=== PATIENT | female | born 1970 | race Caucasian/White ===

== ENCOUNTER 2018-06-22 17:07 | Emergency (ER) | payer SELFPAY | END 2018-06-22 17:08 | disposition left against medical advice (07) | LOC: ED 17:07 | DX: R07.9 Chest pain, unspecified (principal); Z53.21 Procedure and treatment not carried out due to patient leaving prior to being seen by health care provider ==

== ENCOUNTER 2018-06-24 11:20 | Emergency (ER) | payer SELFPAY ==
[2018-06-24 11:35] VITALS: BP 152/99
--- NOTE | 2018-06-24 12:11 | Emergency Department Report ---
ED General Adult HPI - General Chief complaint: Chest Pain Stated complaint: CHEST PAINS Time Seen by Provider: 06/24/18 11:56 Source: patient Mode of arrival: Ambulatory Limitations: No Limitations - History of Present Illness Initial comments: Patient is 47 years old female with history of hypertension on Norvasc 10 mg daily. Patient presented to the ER complaining of left sided chest pain, sharp in nature comes and goes. Patient denied any shortness of breath, cough or fever. Patient stated that she had been going through a lot of stress since she have to follow up on an abnormal mammogram. Patient adamantly refused any blood or or x-rays and she stated that this is an of course, a lot of money as she doesn't have money for that and she just want our [facility] refill. I explained to the patient that there is a great possibility that she might have a heart attack, clots in the lung, pneumonia or other serious disease but she still does not want any further workup. - Related Data Previous Rx's Medication Instructions Recorded Last Taken Type Amlodipine Besylate [Norvasc] 10 mg PO DAILY #30 tablet 06/24/18 Unknown Rx Allergies Allergy/AdvReac Type Severity Reaction Status Date / Time shellfish derived Allergy Unknown Verified 06/24/18 11:36 ED Review of Systems ROS: Stated complaint: CHEST PAINS Other details as noted in HPI Comment: All other systems reviewed and negative Constitutional: denies: chills, fever Cardiovascular: chest pain. denies: palpitations, dyspnea on exertion Gastrointestinal: denies: abdominal pain, nausea, vomiting Skin: denies: rash, lesions ED Past Medical Hx - Past Medical History Hx Hypertension: Yes Additional medical history: heart murmur, breast mass-dx unconfirmed - Surgical History Past Surgical History?: No - Social History Smoking Status: Current Every Day Smoker Substance Use Type: Alcohol - Medications Home Medications: Home Medications Medication Instructions Recorded Confirmed Last Taken Type Amlodipine Besylate [Norvasc] 10 mg PO DAILY #30 tablet 06/24/18 Unknown Rx ED Physical Exam - General Limitations: No Limitations General appearance: alert, in no apparent distress, anxious - Head Head exam: Present: atraumatic, normocephalic, normal inspection - Eye Eye exam: Present: normal appearance - ENT ENT exam: Present: normal exam, normal orophraynx, mucous membranes moist - Neck Neck exam: Present: normal inspection, full ROM. Absent: tenderness, meningismus, lymphadenopathy, thyromegaly - Respiratory Respiratory exam: Present: normal lung sounds bilaterally - Cardiovascular Cardiovascular Exam: Present: regular rate, normal rhythm, normal heart sounds - GI/Abdominal GI/Abdominal exam: Present: soft, normal bowel sounds. Absent: distended, tenderness, guarding, rebound, rigid, organomegaly, mass, bruit, pulsatile mass - Extremities Exam Extremities exam: Present: normal inspection, full ROM, normal capillary refill - Back Exam Back exam: Present: normal inspection, full ROM - Neurological Exam Neurological exam: Present: alert, oriented X3, CN II-XII intact, normal gait, reflexes normal - Skin Skin exam: Present: warm, intact, normal color ED Course Vital Signs 06/24/18 11:31 Temperature 98.1 F Pulse Rate 68 Respiratory 18 Rate Blood Pressure 152/99 O2 Sat by Pulse 100 Oximetry ED Medical Decision Making - EKG Data -: EKG Interpreted by Me EKG shows normal: sinus rhythm Rate: normal - EKG Data Interpretation: no acute changes Critical care attestation.: If time is entered above; I have spent that time in minutes in the direct care of this critically ill patient, excluding procedure time. ED Disposition Clinical Impression: Chest pain, Hypertension Disposition: DC-01 TO HOME OR SELFCARE Is pt being admited?: No Condition: Stable Instructions: Chest Pain (ED), Hypertension (ED) Prescriptions: Amlodipine Besylate [Norvasc] 10 mg PO DAILY #30 tablet Referrals: PRIMARY CARE, [Primary Care Provider] - 3-5 Days
== END 2018-06-24 12:32 | disposition home or self-care (01) ==
LOC: ED 11:20
DX: R07.89 Other chest pain (principal); I10 Essential (primary) hypertension; F17.200 Nicotine dependence, unspecified, uncomplicated; Z91.013 Allergy to seafood
CPT/HCPCS: 93005; 93010; 99282

== ENCOUNTER 2019-03-24 12:46 | Emergency (ER) | payer SELFPAY ==
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
[2019-03-24] MEDS ORDERED: IBUPROFEN PO ONE (14:28)
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
[2019-03-24] MEDS ORDERED: NORVASC ONE (15:12)
[2019-03-24] MEDS ORDERED: NORVASC PO ONE (15:13)
[2019-03-24 15:18] VITALS: BP 206/104
== END 2019-03-24 15:16 | disposition home or self-care (01) ==
LOC: ED 12:46
DX: S13.4XXA Sprain of ligaments of cervical spine, initial encounter (principal); S20.211A Contusion of right front wall of thorax, initial encounter; I10 Essential (primary) hypertension; F17.200 Nicotine dependence, unspecified, uncomplicated; F12.10 Cannabis abuse, uncomplicated; Z91.013 Allergy to seafood; V89.2XXA Person injured in unspecified motor-vehicle accident, traffic, initial encounter; Y93.89 Activity, other specified; Y92.488 Other paved roadways as the place of occurrence of the external cause; Y99.8 Other external cause status
CPT/HCPCS: 72040; 99283

== ENCOUNTER 2021-04-26 12:55 | Emergency (ER) | payer SELFPAY ==
[2021-04-26 13:12] VITALS: BP 124/86
--- NOTE | 2021-04-26 13:23 | Emergency Department Report ---
ED ENT HPI - General Chief complaint: Allergic Reaction Stated complaint: FACIAL SWELLING Time Seen by Provider: 04/26/21 13:22 Source: patient Mode of arrival: Ambulatory Limitations: No Limitations - History of Present Illness Initial comments: 50-year-old female presents to the ER today with complaints of right-sided facial/jaw pain and swelling. Patient states that she noticed it initially yesterday when she was eating fruit and water. She states that she thought she was having allergic reaction and therefore took 2 Benadryl's she did notice some improvement after taking the Benadryl. She states that she did not well last night before going to bed. She states that she noticed again today while she was eating breakfast that the right side of her jaw started to swell and it was sore and painful. She states that she took another Benadryl but without much improvement. She reports some pain and swelling down into the submandibular area on the right side. She denies any ear pain. She denies any dental pain. She denies any facial injuries. She denies any sore throat or difficulty swallowing or swelling in the throat tongue or lips. She denies any difficulty breathing, cough wheezing, or chest pain. MD complaint: other (Right facial/jaw pain and swelling) -: days(s) (1) - Related Data Previous Rx's Medication Instructions Recorded Last Taken Type amLODIPine 10 mg PO DAILY #30 tab 03/24/19 Unknown Rx Amoxicillin/Potassium Clav 1 each PO Q12HR #14 tablet 04/26/21 Unknown Rx [Augmentin 875-125 Tablet] Ibuprofen [Motrin] 800 mg PO Q8HR PRN #30 tablet 04/26/21 Unknown Rx Allergies Allergy/AdvReac Type Severity Reaction Status Date / Time shellfish derived Allergy Unknown Verified 06/24/18 11:36 ED Dental HPI - General Chief complaint: Allergic Reaction Stated complaint: FACIAL SWELLING Time Seen by Provider: 04/26/21 13:22 Source: patient Mode of arrival: Ambulatory Limitations: No Limitations - Related Data Previous Rx's Medication Instructions Recorded Last Taken Type amLODIPine 10 mg PO DAILY #30 tab 03/24/19 Unknown Rx Amoxicillin/Potassium Clav 1 each PO Q12HR #14 tablet 04/26/21 Unknown Rx [Augmentin 875-125 Tablet] Ibuprofen [Motrin] 800 mg PO Q8HR PRN #30 tablet 04/26/21 Unknown Rx Allergies Allergy/AdvReac Type Severity Reaction Status Date / Time shellfish derived Allergy Unknown Verified 06/24/18 11:36 ED Review of Systems ROS: Stated complaint: FACIAL SWELLING Other details as noted in HPI Comment: All other systems reviewed and negative Constitutional: denies: chills, fever Eyes: denies: eye pain, eye discharge, vision change ENT: other (Right-sided facial/jaw pain and swelling). denies: ear pain, throat pain, dental pain, hearing loss, epistaxis, congestion Respiratory: denies: cough, orthopnea, shortness of breath, SOB with exertion, SOB at rest, wheezing Cardiovascular: denies: chest pain, palpitations, dyspnea on exertion, orthopnea, edema, syncope, paroxysmal nocturnal dyspnea Gastrointestinal: denies: abdominal pain, nausea, vomiting, diarrhea, constipation, hematemesis, melena, hematochezia Genitourinary: denies: urgency, dysuria, discharge Musculoskeletal: denies: back pain, joint swelling, arthralgia, myalgia Skin: denies: rash, lesions, change in color, change in hair/nails, pruritus Neurological: denies: headache, weakness, numbness, paresthesias, confusion, abnormal gait, vertigo Psychiatric: denies: anxiety, depression, auditory hallucinations, visual hallucinations, homicidal thoughts, suicidal thoughts Hematological/Lymphatic: denies: easy bleeding, easy bruising, swollen glands ED Past Medical Hx - Past Medical History Previous Medical History?: Yes Hx Hypertension: Yes Additional medical history: heart murmur, breast mass-dx unconfirmed - Surgical History Past Surgical History?: No - Social History Smoking Status: Current Every Day Smoker Substance Use Type: Alcohol, Marijuana - Medications Home Medications: Home Medications Medication Instructions Recorded Confirmed Last Taken Type amLODIPine 10 mg PO DAILY #30 tab 03/24/19 Unknown Rx Amoxicillin/Potassium Clav 1 each PO Q12HR #14 tablet 04/26/21 Unknown Rx [Augmentin 875-125 Tablet] Ibuprofen [Motrin] 800 mg PO Q8HR PRN #30 tablet 04/26/21 Unknown Rx ED Physical Exam - General Limitations: No Limitations General appearance: alert, in no apparent distress - Head Head exam: Present: atraumatic, normocephalic, normal inspection - Eye Eye exam: Present: normal appearance, PERRL, EOMI Pupils: Present: normal accommodation - ENT ENT exam: Present: normal exam, normal orophraynx, mucous membranes moist, other (There is some mild swelling and tenderness to palpation to the preauricular area and down to the angle of the mandible but no extension into the neck area.) - Neck Neck exam: Present: normal inspection, full ROM, lymphadenopathy (Right small submandibular lymph node noted which is mildly tender to palpate but no associated cellulitis.). Absent: meningismus - Respiratory Respiratory exam: Present: normal lung sounds bilaterally. Absent: respiratory distress, wheezes, rales, rhonchi - Cardiovascular Cardiovascular Exam: Present: regular rate, normal rhythm, normal heart sounds - Neurological Exam Neurological exam: Present: alert, oriented X3, CN II-XII intact, normal gait - Psychiatric Psychiatric exam: Present: normal affect, normal mood - Skin Skin exam: Present: intact ED Course Vital Signs 04/26/21 13:11 Temperature 98.3 F Pulse Rate 64 Respiratory 18 Rate Blood Pressure 124/86 [Right] O2 Sat by Pulse 97 Oximetry ED Medical Decision Making - Medical Decision Making Patient history and physical exam concerning for acute parotitis on the right side. No associated trismus, she is able to control her secretions, no facial cellulitis, Dyana's angina or peritonsillar abscess. No angioedema on exam. No rash. She is not in any acute respiratory distress. No stridor on exam. No muffled voice. Patient is able to talk in full sentences. She is not toxic or ill-appearing. Discussed suspected diagnosis and treatment plan with patient. She will be started on antibiotics as a precaution to cover for any bacterial source of her parotitis but most importantly I recommend that she suck sour candy and drink lots of fluids. She will also be given referral to ENT if symptoms persist. Patient expressed understanding of instructions and agree with plan. Patient stable at time of discharge. Critical care attestation.: If time is entered above; I have spent that time in minutes in the direct care of this critically ill patient, excluding procedure time. ED Disposition Clinical Impression: Parotitis, acute Disposition: DC-01 TO HOME OR SELFCARE Is pt being admited?: No Does the pt Need Aspirin: No Condition: Stable Instructions: Parotitis, [id number] Additional Instructions: Recommend that you take the Augmentin as prescribed. I also recommend that you do warm compresses and take the ibuprofen as prescribed. I also recommend that you suck on sour candy throughout the day. Do not take any more Benadryl. Follow-up with the ENT listed on your discharge instruction if symptoms persist but return to the ER if your symptoms worsen in any way. Prescriptions: Amoxicillin/Potassium Clav [Augmentin 875-125 Tablet] 1 each PO Q12HR #14 tablet Ibuprofen [Motrin] 800 mg PO Q8HR PRN #30 tablet PRN Reason: pain/swelling Referrals: GLORIA HENSON MD [Staff Physician] - 3-5 Days Time of Disposition: 13:35
== END 2021-04-26 19:00 | disposition home or self-care (01) ==
LOC: ED 12:55
DX: K11.21 Acute sialoadenitis (principal); I10 Essential (primary) hypertension; F17.200 Nicotine dependence, unspecified, uncomplicated; F12.90 Cannabis use, unspecified, uncomplicated; Z72.89 Other problems related to lifestyle; Z91.013 Allergy to seafood; Z79.899 Other long term (current) drug therapy
CPT/HCPCS: 99281